=== PATIENT | male | born 1985 ===

== ENCOUNTER 2018-01-20 22:35 | Emergency (ER) | payer SELFPAY ==
[2018-01-20 22:46] VITALS: BP 129/83; PULSE 95; RESP 18; TEMP 98.3; O2SAT 99
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
--- NOTE | 2018-01-21 08:57 | CT ---
Date of service: 01/21/2018 PROCEDURE: CT HEAD WITHOUT CONTRAST. HISTORY: head injury COMPARISON: None available. TECHNIQUE: Axial computed tomography images were obtained through the head/brain without intravenous contrast. Radiation dose: Total exam DLP = 849.85 mGy-cm. This CT exam was performed using one or more of the following dose reduction techniques: Automated exposure control, adjustment of the mA and/or kV according to patient size, and/or use of iterative reconstruction technique. FINDINGS: HEMORRHAGE: No intracranial hemorrhage. BRAIN: No mass effect or edema. No atrophy or chronic microvascular ischemic changes. VENTRICLES: Unremarkable. No hydrocephalus. CALVARIUM: Unremarkable. PARANASAL SINUSES: Unremarkable as visualized. No significant inflammatory changes. MASTOID AIR CELLS: Unremarkable as visualized. No inflammatory changes. OTHER FINDINGS: None. IMPRESSION: Normal CT of the Head. No intracranial mass, hemorrhage or evidence of acute infarct. The preliminary findings for this examination were reported by [facility] at 5:59 a.m. on 01/21/2018. There is concurrence of this report with the preliminary findings.
--- NOTE | 2018-01-21 11:50 | CT ---
Date of service: 01/21/2018 PROCEDURE: CT MAXILLOFACIAL BONES WITHOUT CONTRAST HISTORY: left-sided injury COMPARISON: While TECHNIQUE: Contiguous axial CT images of the maxillofacial bones were obtained. Coronal and sagittal reformats were generated. Radiation dose: Total exam DLP = 759.58 mGy-cm. This CT exam was performed using one or more of the following dose reduction techniques: Automated exposure control, adjustment of the mA and/or kV according to patient size, and/or use of iterative reconstruction technique. FINDINGS: NASAL BONES: Bilateral nasal bone fractures. The absence of soft tissue swelling suggest these are subacute or old fractures. ORBITS: Unremarkable. PARANASAL SINUSES/ MASTOIDS: Clear. MAXILLA: Unremarkable. MANDIBLE/ TEMPOROMANDIBULAR JOINTS: Unremarkable. SKULL BASE: Unremarkable. TEMPORAL BONES: Middle ears and mastoid grossly unremarkable. OTHER FINDINGS: None. IMPRESSION: Age indeterminate, likely chronic nasal bone fractures. Concordant results (preliminary interpretation) provided by Izzy Money. Procedure Completed: 00:37. Preliminary Report: Dictated and Authenticated: 01:23. Final Interpretation: 11:48.
--- NOTE | 2018-01-21 12:06 | RAD ---
Date of service: 01/21/2018 PROCEDURE: Radiographs of the Left Shoulder HISTORY: injury COMPARISON: No prior. FINDINGS: BONES: Normal. No fracture. JOINTS: Normal. Glenohumeral and acromioclavicular joints preserved. No osteoarthritis. SOFT TISSUES: Normal. OTHER FINDINGS: None. IMPRESSION: Normal radiographs of the left shoulder.
== END 2018-01-21 01:56 ==
LOC: H.ER 22:35
DX: S00.83XA Contusion of other part of head, initial encounter (principal); S09.90XA Unspecified injury of head, initial encounter; S49.92XA Unspecified injury of left shoulder and upper arm, initial encounter; Y35.813A Legal intervention involving manhandling, suspect injured, initial encounter; Y92.89 Other specified places as the place of occurrence of the external cause

== ENCOUNTER 2018-01-21 05:12 | Emergency (ER) | payer SELFPAY ==
[2018-01-21 05:25] VITALS: BP 132/89; PULSE 65; RESP 18; TEMP 97.8; O2SAT 97
--- NOTE | 2018-01-21 05:50 | ED PDOC ---
HPI: Chest Pain Time Seen by Provider: 01/21/18 05:28 Chief Complaint (Nursing): Chest Pain Chief Complaint (Provider): chest pain History Per: Patient History/Exam Limitations: no limitations Onset/Duration Of Symptoms: Hrs (today) Current Symptoms Are (Timing): Still Present Associated Symptoms: denies: Nausea Additional Complaint(s): Manas Rowland is a 32 year old male, with no significant past medical history, who was brought to the emergency department under [place] [employer] custody for medical clearance after patient began complaining of left sided chest pain onset today. Patient states pain worsens with deep inspiration. Patient was seen in this ED for clearance several hours ago, he was cleared and left with PD but arrived today with a new complaint. He denies any nausea, vomit or injuries. No further medical complaints. PMD: None provided. Past Medical History Reviewed: Historical Data, Nursing Documentation, Vital Signs Vital Signs: Last Vital Signs Temp 97.8 F 01/21/18 05:20 Pulse 65 01/21/18 05:20 Resp 18 01/21/18 05:20 BP 132/89 01/21/18 05:20 Pulse Ox 97 01/21/18 05:20 - Medical History PMH: No Chronic Diseases - Family History Family History: States: Unknown Family Hx - Social History Current smoker - smoking cessation education provided: Yes - Home Medications Home Medications: Ambulatory Orders Medication Instructions Recorded Ibuprofen [Motrin] 600 mg PO TID 7 Days tab 10/27/15 Mag&Al/Simet/Diphen/Lido [First 5 ml MM Q8 PRN #1 kit 05/10/16 Magic Mouthwash] Naproxen [Naprosyn] 500 mg PO BID PRN #30 tab 05/10/16 Penicillin VK [Pen-Vee K] 500 mg PO Q6 #40 tab 05/10/16 Ibuprofen [Motrin Tab] 800 mg PO Q8 PRN #20 tab 02/26/17 oxyCODONE/Acetaminophen [Percocet 1 ea PO Q6H PRN #6 tab 02/26/17 5/325 mg Tab] - Allergies Allergies/Adverse Reactions: Allergies Allergy/AdvReac Type Severity Reaction Status Date / Time iodine Allergy RASH Verified 01/21/18 05:19 Review of Systems ROS Statement: Except As Marked, All Systems Reviewed And Found Negative Cardiovascular: Positive for: Chest Pain (left sided ) Gastrointestinal: Negative for: Nausea, Vomiting Physical Exam - Reviewed Nursing Documentation Reviewed: Yes Vital Signs Reviewed: Yes - Physical Exam Appears: Positive for: No Acute Distress Head Exam: Positive for: ATRAUMATIC, NORMAL INSPECTION, NORMOCEPHALIC Skin: Positive for: Normal Color, Warm, Dry Eye Exam: Positive for: Normal appearance, EOMI, PERRL Neck: Positive for: Painless ROM Cardiovascular/Chest: Positive for: Regular Rate, Rhythm. Negative for: Murmur Respiratory: Positive for: Normal Breath Sounds. Negative for: Respiratory Distress Gastrointestinal/Abdominal: Positive for: Normal Exam, Soft. Negative for: Tenderness, Guarding, Rebound Back: Positive for: Normal Inspection. Negative for: L CVA Tenderness, R CVA Tenderness, Vertebral Tenderness Extremity: Positive for: Normal ROM (upper and lower extremities). Negative for: Deformity, Swelling Neurologic/Psych: Positive for: Alert, Oriented - Laboratory Results Result Diagrams: 01/21/18 05:45 01/21/18 05:45 - ECG O2 Sat by Pulse Oximetry: 97 (RA) Pulse Ox Interpretation: Normal Medical Decision Making Medical Decision Making: Time: 05:28 Initial Impression: 32 y/o with chest pain Initial Plan: --EKG --CMP --Drug screen, urine --Troponin I --Crisis evaluation --CBC w/ differential --Ibuprofen 600 mg PO --Reevaluation 06:25 -Labs showed no clinical significant abnormalities. CXR showed no active disease. Patient evaluated by crisis and cleared for discharge under custody of [facility]. Diagnosis of pleuritic chest pain ------ Scribe Attestation: Documented by Sidney Perez, acting as a scribe for Gregg Summers MD. Provider Scribe Attestation: All medical record entries made by the Scribe were at my direction and personally dictated by me. I have reviewed the chart and agree that the record accurately reflects my personal performance of the history, physical exam, medical decision making, and the department course for this patient. I have also personally directed, reviewed, and agree with the discharge instructions and disposition. Disposition - Clinical Impression Clinical Impression: Pleuritic chest pain - Disposition Disposition: Routine/Home Disposition Time: 06:25 Condition: STABLE Additional Instructions: Patient is medically and psychiatrically stable for incarceration Instructions: Pleuritic Chest Pain Forms: [employer] (Portuguese)
[2018-01-21 06:04] LABS: BASO % 0.2 % (0.0-2.0); EOS % 0.2 % (0.0-4.0); HEMOGLOBIN 14.3 g/dL (12.0-18.0); LYMPH # 1.2 K/uL (1.0-4.3); LYMPH % 10.3 % (20.0-40.0); MEAN CELL VOLUME 91.7 fl (80.0-94.0); MEAN CORPUSCULAR HEMOGLOBIN 31.7 pg (27.0-31.0); MEAN CORPUSCULAR HGB CONC 34.6 g/dL (33.0-37.0); MEAN PLATELET VOLUME 9.4 fl (7.2-11.7); MONO % 8.8 % (0.0-10.0); NEUT # 9.6 K/uL (1.8-7.0); NEUT % 80.5 % (50.0-75.0); RBC 4.52 Mil/uL (4.40-5.90); RED CELL DISTRIBUTION WIDTH 12.8 % (11.5-14.5); WHITE BLOOD COUNT 11.9 K/uL (4.8-10.8)
[2018-01-21 06:12] LABS: ALB/GLOB RATIO 1.4 (1.0-2.1); ALBUMIN 4.4 g/dL (3.5-5.0); ALT/SGPT 29 U/L (21-72); AST/SGOT 39 U/L (17-59); BLOOD UREA NITROGEN 16 mg/dl (9-20); CALCIUM 9.3 mg/dL (8.4-10.2); GFR NON-AFRICAN AMERICAN > 60
--- NOTE | 2018-01-21 12:02 | RAD ---
Date of service: 01/21/2018 HISTORY: chest pain COMPARISON: 10/27/2015 FINDINGS: LUNGS: No active pulmonary disease. PLEURA: No significant pleural effusion identified, no pneumothorax apparent. CARDIOVASCULAR: Normal. OSSEOUS STRUCTURES: No significant abnormalities. VISUALIZED UPPER ABDOMEN: Normal. OTHER FINDINGS: None. IMPRESSION: No active disease.
--- NOTE | 2018-01-21 14:55 | CARD ---
APPROVED REPORT Date of service: 01/21/2018 EKG Measurement Heart [id number] <Conclusion> Normal sinus rhythm Normal ECG
== END 2018-01-21 06:33 | disposition home or self-care (01) ==
LOC: H.ER 05:12
DX: R07.9 Chest pain, unspecified (principal); F17.200 Nicotine dependence, unspecified, uncomplicated

== ENCOUNTER 2018-05-12 14:28 | Emergency (ER) | payer MEDICAID, OTHER ==
[2018-05-12 14:49] VITALS: TEMP 98.8
--- NOTE | 2018-05-12 15:25 | ED PDOC ---
HPI: Psych/Substance Abuse Time Seen by Provider: 05/12/18 15:08 Chief Complaint (Nursing): Psychiatric Evaluation Chief Complaint (Provider): Substance Abuse History Per: Patient History/Exam Limitations: no limitations Onset/Duration Of Symptoms: Days (one) Current Symptoms Are (Timing): Still Present Suicide/Self Injury Attempted (Context): None Associated Symptoms: Anxiety, Paranoia Involuntary Hold By: None Additional History Per: Friend Additional Complaint(s): Pt presents to the ED complaining of a heightened sense of paranoia over the last 24 hours during which he was unable to sleep and paced the floor so much that his feet hurt. Pt states that his friend is visiting from [place] and they drank [place] yesterday which precipitated the paranoia. He states that his friend stated that he place crystal meth in the alcohol prior to sharing. Pt denies other symptoms other than the lack of desire to eat; pt denies nausea vomiting and diarrehe, other drug use as well as fever; pt also denies headache, tremors, diaphoresis, vison difficulties or changes, dry mouth or dizziness. Past Medical History Reviewed: Historical Data, Nursing Documentation, Vital Signs Vital Signs: Last Vital Signs Temp 98.8 F 05/12/18 14:48 Pulse 92 H 05/12/18 14:48 Resp 18 05/12/18 14:48 BP 122/57 L 05/12/18 14:48 Pulse Ox 98 05/12/18 14:48 - Medical History PMH: Denies: HIV, Chronic Kidney Disease - Family History Family History: States: Unknown Family Hx - Immunization History Hx Tetanus Toxoid Vaccination: No Hx Influenza Vaccination: No Hx Pneumococcal Vaccination: No - Home Medications Home Medications: Ambulatory Orders Medication Instructions Recorded RX: Naproxen [Naprosyn] 500 mg PO BID 05/12/16 Azithromycin [Zithromax] 500 mg PO DAILY #4 tab 05/15/16 Cefdinir [Omnicef] 300 mg PO Q12 #12 cap 05/15/16 Cyclobenzaprine [Cyclobenzaprine 10 mg PO Q6 PRN #20 tab 05/15/16 HCl] - Allergies Allergies/Adverse Reactions: Allergies Allergy/AdvReac Type Severity Reaction Status Date / Time No Known Allergies Allergy Verified 05/12/16 15:17 Review of Systems ROS Statement: Except As Marked, All Systems Reviewed And Found Negative Psych: Positive for: Other (paronoia (acute onset)) Physical Exam - Reviewed Nursing Documentation Reviewed: Yes Vital Signs Reviewed: Yes - Physical Exam Appears: Positive for: Well, Non-toxic, No Acute Distress. Negative for: U ncomfortable, In Acute Distress Head Exam: Positive for: ATRAUMATIC, NORMAL INSPECTION Skin: Positive for: Normal Color, Warm, Dry. Negative for: Diaphoresis, Pallor, Rash Eye Exam: Positive for: Normal appearance, EOMI, PERRL. Negative for: Nystagmus, Periorbital swelling, Periorbital tenderness Neck: Positive for: Normal, Painless ROM, Supple. Negative for: Decreased ROM Cardiovascular/Chest: Positive for: Regular Rate, Rhythm. Negative for: Bradycardia, Tachycardia Respiratory: Positive for: Normal Breath Sounds. Negative for: Decreased Breath Sounds, Accessory Muscle Use, Crackles, Rales, Rhonchi, Stridor, Wheezing, Respiratory Distress Pulses-Carotid (L): 2+ Pulses-Carotid (R): 2+ Pulses-Radial (L): 2+ Pulses-Radial (R): 2+ Neurologic/Psych: Positive for: Alert, plaster die maker II-XII, Oriented - Laboratory Results Result Diagrams: 05/12/18 15:45 05/12/18 15:45 - ECG ECG: Positive for: Interpreted By Me, Viewed By Me ECG Rhythm: Positive for: Normal QRS, Normal ST Segment, Sinus Rhythm Rate: 67 O2 Sat by Pulse Oximetry: 98 Pulse Ox Interpretation: Normal Medical Decision Making Medical Decision Making: R/O drug related paronoia CBC CMP Urine Tox US EKG Pt was asleep for 90 minutes continuously in his examination room. Hematology presents high amounts of WBC of 11.0, MCH of 31.1, Neut % of 76.4, Lymph % of 15, Neut # of 8.4 and Forest # of 0.9. Toxicology presents positive and high for Amphetamines, Cocaine Metabols and Cannabinoids Disposition - Clinical Impression Clinical Impression: Drug abuse, amphetamine type, Drug abuse, cocaine type - Patient ED Disposition Is Patient to be Admitted: No Doctor Will See Patient In The: Office Counseled Patient/Family Regarding: Studies Performed, Diagnosis, Need For Fol lowup - Disposition Referrals: [facility] [Outside] Disposition: Routine/Home Disposition Time: 17:14 Condition: STABLE Instructions: Drug Abuse and Drug Addiction (DC), Drug Abuse Treatment Forms: [employer] (Amharic)
[2018-05-12 15:52] LABS: BASO # 0.1 K/uL (0.0-0.2); BASO % 0.5 % (0.0-2.0); EOS % 0.1 % (0.0-4.0); HEMOGLOBIN 14.6 g/dL (12.0-18.0); LYMPH # 1.6 K/uL (1.0-4.3); MEAN CELL VOLUME 91.3 fl (80.0-94.0); MEAN CORPUSCULAR HEMOGLOBIN 31.1 pg (27.0-31.0); MEAN CORPUSCULAR HGB CONC 34.1 g/dL (33.0-37.0); MEAN PLATELET VOLUME 8.9 fl (7.2-11.7); MONO # 0.9 K/uL (0.0-0.8); NEUT # 8.4 K/uL (1.8-7.0); NEUT % 76.4 % (50.0-75.0); RBC 4.69 Mil/uL (4.40-5.90); RED CELL DISTRIBUTION WIDTH 12.7 % (11.5-14.5)
[2018-05-12 16:01] LABS: ALB/GLOB RATIO 1.4 (1.0-2.1); ALT/SGPT 21 U/L (21-72); AST/SGOT 33 U/L (17-59); BLOOD UREA NITROGEN 15 mg/dl (9-20); CALCIUM 9.7 mg/dL (8.4-10.2); GFR NON-AFRICAN AMERICAN > 60
[2018-05-12 16:07] LABS: SQUAMOUS EPITHIAL < 1 /hpf (0-5); URINE BILIRUBIN NEGATIVE (NEGATIVE); URINE BLOOD NEGATIVE (NEGATIVE); URINE CLARITY CLEAR (Clear); URINE COLOR YELLOW (YELLOW); URINE GLUCOSE (UA) NEG (NEGATIVE); URINE LEUKOCYTE ESTERASE NEG Leu/uL (Negative); URINE PROTEIN 30 mg/dL (NEGATIVE); URINE UROBILINOGEN 0.2-1.0 mg/dL (0.2-1.0)
[2018-05-12 16:30] LABS: BARBITURATES, UR NEGATIVE (NEGATIVE); BENZODIAZEPINES, UR NEGATIVE (NEGATIVE); OPIATES, UR NEGATIVE (NEGATIVE); PHENCYCLIDINE, UR NEGATIVE (NEGATIVE)
[2018-05-12 17:07] VITALS: BP 122/64; RESP 15
[2018-05-12 17:14] VITALS: PULSE 67; O2SAT 98
--- NOTE | 2018-05-13 07:24 | CARD ---
APPROVED REPORT Date of service: 05/12/2018 EKG Measurement Heart [id number] <Conclusion> Normal sinus rhythm Normal ECG
== END 2018-05-12 17:14 | disposition home or self-care (01) ==
LOC: H.ER 14:28 → MERGE 14:28 → H.ER 17:14
DX: F14.10 Cocaine abuse, uncomplicated (principal); F15.10 Other stimulant abuse, uncomplicated
CPT/HCPCS: 80053; 81003; 85025; 93005; 99283; G0480